=== PATIENT | male | born 1985 | race Caucasian/White ===

== ENCOUNTER 2017-03-06 21:43 | Emergency (ER) | payer BC ==
[2017-03-06 21:48] VITALS: TEMP 98.2
[2017-03-06] MEDS ORDERED: SODIUM CHLORIDE 0.9% 2,000 ML IV STA (21:55)
[2017-03-06] MEDS ORDERED: ONDANSETRON 4 MG/2 ML VIAL IVP STA (21:55)
[2017-03-06] MEDS ORDERED: HYDROmorphone 1 MG/ML 1 ML SYRINGE IVP STA (22:02)
[2017-03-06] MEDS ORDERED: RX INFO: IV CONTRAST WAS GIVEN 1 EACH MISC MISCELLANE PRN (22:02)
--- NOTE | 2017-03-06 22:22 | ED ---
Abdominal Pain HPI - General Chief Complaint: Abdominal Pain Stated Complaint: Abd Pain Time Seen by Provider: 03/06/17 21:55 Source: patient, RN notes reviewed Mode of arrival: wheelchair Limitations: no limitations - History of Present Illness Initial Comments: 31-year-old male presents emergency Department with chief complaint of abdominal pain, nausea vomiting diarrhea over the last 4 days. Patient states he has a history of Crohn's with bowel resection. Patient states he recently has set up again with her GI doctor. Patient states that he is on no Current medications for his Crohn's. Patient states she's had rectal bleeding throughout his history of Crohn's. Patient states she's also had intra- abdominal abscess. Patient denies any fever or chills. Patient states the pain is primarily right lower region. He states that he is unsure if he has his appendix or not. Patient states she's never been given a definite answer. Patient denies any sick contacts. Patient feels that he is having a flareup of his Crohn's. - Related Data Home Medications Medication Instructions Recorded Confirmed ALPRAZolam [Xanax] 0.25 mg PO Q6H PRN 03/06/17 03/06/17 Ibuprofen [Motrin] 600 mg PO Q6H PRN 03/06/17 03/06/17 lamoTRIgine [LaMICtal] 75 mg PO BID 03/06/17 03/06/17 Allergies Allergy/AdvReac Type Severity Reaction Status Date / Time No Known Allergies Allergy Verified 03/06/17 22:53 Review of Systems ROS Statement: Those systems with pertinent positive or pertinent negative responses have been documented in the HPI. ROS Other: All systems not noted in ROS Statement are negative. Past Medical History Additional Past Medical History / Comment(s): chronns History of Any Multi-Drug Resistant Organisms: None Reported Past Surgical History: Bowel Resection Past Psychological History: Anxiety, Depression Smoking Status: Former smoker Past Alcohol Use History: Rare Past Drug Use History: None Reported General Exam Limitations: no limitations General appearance: alert, in no apparent distress Head exam: Present: atraumatic, normocephalic, normal inspection Respiratory exam: Present: normal lung sounds bilaterally. Absent: respiratory distress, wheezes, rales, rhonchi, stridor Cardiovascular Exam: Present: regular rate, normal rhythm, normal heart sounds. Absent: systolic murmur, diastolic murmur, rubs, gallop, clicks GI/Abdominal exam: Present: soft, tenderness (Mild to moderate right lower quadrant), normal bowel sounds. Absent: distended, guarding, rebound, rigid Back exam: Absent: CVA tenderness (R), CVA tenderness (L) Skin exam: Present: warm, dry, intact, normal color. Absent: rash Course Vital Signs 03/06/17 21:45 Temperature 98.2 F Pulse Rate 86 Respiratory 20 Rate Blood Pressure 151/85 O2 Sat by Pulse 99 Oximetry Medical Decision Making - Medical Decision Making 31-year-old male present emergency department for abdominal pain possible Crohn' s flare. CT does not show any acute evidence of Crohn's though he's had a prior resection. Patient does have some hematuria and multiple stones possibility of stones in his ureter though this is obscured because he had oral contrast in the hospital. The patient did not inform me or hyperbaric technician that he was at another hospital prior to coming here. Even after the scan he denied having any oral contrast. [facility] was contacted and patient was seen there. Patient was adequately hydrated with 2 L of fluid and he was advised to have his kidney function rechecked secondary to 2 doses of IV contrast. Patient was given Solu-Medrol for possible Crohn's patient was given Zofran a total of codeine upon discharge. - Lab Data Result diagrams: 03/06/17 22:22 03/06/17 22:22 Lab Results 03/06/17 03/06/17 03/06/17 Range/Units 22:22 22:22 22:22 WBC 5.6 (3.8-10.6) k/uL RBC 4.25 L (4.30-5.90) m/uL Hgb 13.6 (13.0-17.5) gm/dL Hct 37.8 L (39.0-53.0) % MCV 88.9 (80.0-100.0) fL MCH 31.9 (25.0-35.0) pg MCHC 35.9 (31.0-37.0) g/dL RDW 11.9 (11.5-15.5) % Plt Count 260 (150-450) k/uL Neutrophils % 66 % Lymphocytes % 26 % Monocytes % 4 % Eosinophils % 1 % Basophils % 1 % Neutrophils # 3.7 (1.3-7.7) k/uL Lymphocytes # 1.4 (1.0-4.8) k/uL Monocytes # 0.3 (0-1.0) k/uL Eosinophils # 0.0 (0-0.7) k/uL Basophils # 0.0 (0-0.2) k/uL Sodium 140 (137-145) mmol/L Potassium 3.8 (3.5-5.1) mmol/L Chloride 106 (98-107) mmol/L Carbon Dioxide 24 (22-30) mmol/L Anion Gap 10 mmol/L BUN 8 L (9-20) mg/dL Creatinine 0.90 (0.66-1.25) mg/dL Est GFR (MDRD) Af Amer >60 (>60 ml/min/1.73 sqM) Est GFR (MDRD) Non-Af >60 (>60 ml/min/1.73 sqM) Glucose 97 (74-99) mg/dL Calcium 8.8 (8.4-10.2) mg/dL Total Bilirubin 0.6 (0.2-1.3) mg/dL AST 22 (17-59) U/L ALT 33 (21-72) U/L Alkaline Phosphatase 54 (38-126) U/L Total Protein 6.7 (6.3-8.2) g/dL Albumin 4.1 (3.5-5.0) g/dL Amylase 68 (30-110) U/L Lipase 166 (23-300) U/L Urine Color Yellow Urine Appearance Clear (Clear) Urine pH 6.0 (5.0-8.0) Ur Specific [place] >1.050 H (1.001-1.035) Urine Protein Trace H (Negative) Urine Glucose (UA) Negative (Negative) Urine Ketones Negative (Negative) Urine Blood Small H (Negative) Urine Nitrite Negative (Negative) Urine Bilirubin Negative (Negative) Urine Urobilinogen <2.0 (<2.0) mg/dL Ur Leukocyte Esterase Negative (Negative) Urine RBC 13 H (0-5) /hpf Urine WBC 2 (0-5) /hpf Ur Squamous Epith Cells <1 (0-4) /hpf Urine Mucus Rare H (None) /hpf Disposition Clinical Impression: Crohns disease, Abdominal pain, Hematuria Disposition: HOME SELF-CARE Condition: Stable Instructions: Abdominal Pain (ED) Additional Instructions: Follow-up with your poacher operator tomorrow. Please return to the Emergency Department if symptoms worsen or any other concerns. Referrals: None,Stated [Primary Care Provider] - 1-2 days Time of Disposition: 23:48
[2017-03-06 22:32] LABS: Appearance,Urine Clear (Clear); Bilirubin,Urine Negative (Negative); Glucose,Urine (UA) Negative (Negative); Ketones,Urine Negative (Negative); Leukocyte Esterase,Urine Negative (Negative); Mucus,Urine Rare /hpf; Nitrite,Urine Negative (Negative); Particle Count 452; Protein,Urine Trace (Negative); RBC,Urine 13 /hpf (0-5); Squamous Epithelial Cell,Urine <1 /hpf (0-4); UA Billing (MACRO vs. MICRO) MICRO; Urobilinogen,Urine <2.0 mg/dL (<2.0); WBC,Urine 2 /hpf (0-5)
[2017-03-06 22:33] LABS: Basophils % (A) 1 %; CH 32.1; CHCM 36.3; Eosinophils % (A) 1 %; HCT 37.8 % (39.0-53.0); HDW 3.03; HGB 13.6 gm/dL (13.0-17.5); Luc # (Auto) 0.14; Luc % (Auto) 3; Lymphocytes # (A) 1.4 k/uL (1.0-4.8); Lymphocytes % (A) 26 %; MCH 31.9 pg (25.0-35.0); MCHC 35.9 g/dL (31.0-37.0); MCV 88.9 fL (80.0-100.0); Mean Platelet Volume 7.8; Monocytes # (A) 0.3 k/uL (0-1.0); Monocytes % (A) 4 %; Neutrophils # (A) 3.7 k/uL (1.3-7.7); Neutrophils % (A) 66 %; RBC 4.25 m/uL (4.30-5.90); RDW 11.9 % (11.5-15.5); WBC 5.6 k/uL (3.8-10.6); WBC (Perox) 5.88
[2017-03-06 22:35] LABS: Specific Gravity,Urine >1.050 (1.001-1.035)
[2017-03-06 22:47] LABS: ALT 33 U/L (21-72); AST 22 U/L (17-59); Alkaline Phosphatase 54 U/L (38-126); Amylase 68 U/L (30-110); Anion Gap 10 mmol/L; Blood Urea Nitrogen 8 mg/dL (9-20); Calcium 8.8 mg/dL (8.4-10.2); Carbon Dioxide 24 mmol/L (22-30); Chloride 106 mmol/L (98-107); Glucose 97 mg/dL (74-99); Non-African American GFR(MDRD) >60 (>60 ml/min/1.73 sqM); Potassium 3.8 mmol/L (3.5-5.1); Sodium 140 mmol/L (137-145); Total Bilirubin 0.6 mg/dL (0.2-1.3); Total Protein 6.7 g/dL (6.3-8.2)
--- NOTE | 2017-03-06 23:31 | CT ---
EXAM: CT Abdomen and Pelvis With Intravenous Contrast CLINICAL HISTORY: History of crohn's disease. Nausea and right sided abdominal pain. Reason: Pain TECHNIQUE: Axial computed tomography images of the abdomen and pelvis with intravenous contrast. CTDI is 5.3, 5.0 mGy and DLP is 381.5 mGy-cm. This CT exam was performed using one or more of the following dose reduction techniques: automated exposure control, adjustment of the mA and/or kV according to patient size, and/or use of iterative reconstruction technique. COMPARISON: No relevant prior studies available. FINDINGS: Lower thorax: No acute findings. ABDOMEN: Liver: Unremarkable. Gallbladder and bile ducts: Unremarkable. Pancreas: Unremarkable. Spleen: Mild splenomegaly. Adrenals: Unremarkable. Kidneys and ureters: Unremarkable. No hydronephrosis. Stomach and bowel: Postsurgical changes in the colon. Contrast material is seen in the distal small bowel and colon, correlate with history of prior procedure. No evidence of bowel obstruction. Appendix: Not visualized. PELVIS: Bladder: Unremarkable. Reproductive: Unremarkable as visualized. ABDOMEN and PELVIS: Intraperitoneal space: Unremarkable. No free air. No significant fluid collection. Bones/joints: No acute fracture. Soft tissues: Unremarkable. Vasculature: Unremarkable. Lymph nodes: Unremarkable. IMPRESSION: No acute intra-abdominal process.
[2017-03-06] MEDS ORDERED: methylPREDNISolone SOD SUCCI 125 MG/2 ML VIAL IV STA (23:45)
[2017-03-06] MEDS ORDERED: ONDANSETRON 4 MG ODT STARTER PACK 2 TAB BTL PO STA (23:45)
[2017-03-06] MEDS ORDERED: ACET/COD 300 MG/30 MG STARTER PACK 6 TAB BTL PO STA (23:45)
[2017-03-07 00:12] VITALS: BP 147/87; PULSE 87; RESP 17
== END 2017-03-07 00:12 | disposition home or self-care (01) ==
LOC: EC 21:43
DX: K50.90 Crohn's disease, unspecified, without complications (principal); R31.9 Hematuria, unspecified; F32.9 Major depressive disorder, single episode, unspecified; Z87.891 Personal history of nicotine dependence; Z98.890 Other specified postprocedural states; Z79.899 Other long term (current) drug therapy
CPT/HCPCS: 99284; 96374; 96375 ×2; 36415; 80053; 82150; 83690; 85025; 81001; 74177; J2930; J2405; J1170; Q9967; S0119